=== PATIENT | male | born 1990 | race Caucasian/White ===

== ENCOUNTER 2018-09-14 07:58 | Emergency (ER) | payer OTHER ==
[2018-09-14 08:20] VITALS: BP 116/82
--- NOTE | 2018-09-14 08:23 | UC ---
Skin Complaint HPI - HPI Summary HPI Summary: Pt presents with c/o blistered rash on bilateral upper extremities, neck, and face. 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 - History of Current Complaint Time Seen by Provider: 09/14/18 08:14 Stated Complaint: SKIN CONDITION (POISON [place]) Hx Obtained From: Patient Onset/Duration: Sudden Onset, Lasting Days, Still Present Skin Exposure Onset/Duration: Days Ago Onset Severity: Mild Current Severity: Moderate Pain Intensity: 0 Location: Generalized Character: Redness, Raised Aggravating Factor(s): Touch Alleviating Factor(s): OTC Creams/Salves Associated Signs & Symptoms: Positive: Rash, Drainage Related History: Possible Reaction to: Environmental Exposure - Allergy/Home Medications Allergies/Adverse Reactions: Allergies Allergy/AdvReac Type Severity Reaction Status Date / Time No Known Allergies Allergy Verified 09/14/18 08:24 Review of Systems Constitutional: Negative Skin: Rash Eyes: Negative ENT: Negative Respiratory: Negative Cardiovascular: Negative Gastrointestinal: Negative Genitourinary: Negative Motor: Negative Neurovascular: Negative Musculoskeletal: Negative Neurological: Negative Psychological: Negative Is Patient Immunocompromised?: No All Other Systems Reviewed And Are Negative: Yes PMH/Surg Hx/FS Hx/Imm Hx Previously Healthy: Yes - Surgical History Surgical History: None - Family History Known Family History: Positive: Cardiac Disease - Social History Occupation: Employed Full-time Lives: With Family Alcohol Use: None Substance Use Type: None Smoking Status (MU): Never Smoked Tobacco Have You Smoked in the Last Year: No Physical Exam Triage Information Reviewed: Yes Appearance: Well-Appearing Vital Signs: Initial Vital Signs Temp 98.1 F 09/14/18 08:14 Pulse 68 09/14/18 08:14 Resp 14 09/14/18 08:14 BP 116/82 09/14/18 08:14 Pulse Ox 99 09/14/18 08:14 Vital Signs Reviewed: Yes Eye Exam: Normal ENT Exam: Normal ENT: Positive: Hearing grossly normal Dental Exam: Normal Neck exam: Normal Respiratory: Positive: No respiratory distress Musculoskeletal Exam: Normal Neurological Exam: Normal Psychological Exam: Normal Skin: Positive: rashes - clear fluid filled scattered blisters/vessicles, raised mild erythematous areas bialteral upper extremities, right side neck and cheek, posterior neck. Course/Dx - Differential Diagnoses - Skin Complaint Differential Diagnoses: Poison [place], Varicella Zoster - Diagnoses Provider Diagnoses: poison [place] Discharge - Sign-Out/Discharge Documenting (check all that apply): Patient Departure All imaging exams completed and their final reports reviewed: No Studies - Discharge Plan Condition: Stable Disposition: HOME Prescriptions: Hydrocortisone 0.5% OINT* 1 applic TOPICAL Q12H #1 tube predniSONE TAB* [Deltasone 10 MG TAB*] 30 mg PO DAILY #12 tab Patient Education Materials: Poison [place] (ED) Referrals: [facility] [Outside] - If Needed No Primary Care Phys,NOPCP [Primary Care Provider] - - Billing Disposition and Condition Condition: STABLE Disposition: Home
== END 2018-09-14 08:52 | disposition home or self-care (01) ==
LOC: UCCORT 07:58
DX: L23.7 Allergic contact dermatitis due to plants, except food (principal)
CPT/HCPCS: 99202; G0463